=== PATIENT | female | born 1935 | race Caucasian/White ===

== ENCOUNTER → 2017-08-02 | Outpatient (CLI) | payer OTHER | END | disposition home or self-care (01) | LOC: RAD 11:50 | DX: R10.9 Unspecified abdominal pain (principal) ==

== ENCOUNTER 2017-10-20 16:05 | Emergency (ER) | payer OTHER ==
[~2017-10-20] VITALS: Ht 160 cm; Wt 68.0 kg
[2017-10-20] MEDS ORDERED: DIGOXIN125 MCG (16:37)
[2017-10-20] MEDS ORDERED: ADALAT CC60 MG (16:37)
[2017-10-20] MEDS ORDERED: LASIX20 MG (16:37)
[2017-10-20] MEDS ORDERED: RESTORIL30 MG (16:38)
[2017-10-20] MEDS ORDERED: SERTRALINE HCL100 MG (16:38)
[2017-10-20] MEDS ORDERED: SPIRONOLACTONE50 MG (16:38)
[2017-10-20] MEDS ORDERED: OMEPRAZOLE40 MG (16:38)
[2017-10-20] MEDS ORDERED: SIMVASTATIN40 MG (16:39)
[2017-10-20] MEDS ORDERED: VITAMIN D1000 UNIT (16:39)
== END 2017-10-20 22:25 | disposition home or self-care (01) ==
LOC: ER 16:05
DX: S00.03XA Contusion of scalp, initial encounter (principal); S40.011A Contusion of right shoulder, initial encounter; S19.9XXA Unspecified injury of neck, initial encounter; W01.198A Fall on same level from slipping, tripping and stumbling with subsequent striking against other object, initial encounter; Y93.E8 Activity, other personal hygiene; Y92.012 Bathroom of single-family (private) house as the place of occurrence of the external cause; Y99.8 Other external cause status

== ENCOUNTER 2018-05-04 13:50 | Outpatient (CLI) | payer OTHER ==
[~2018-05-04 13:50] MED LIST: ADALAT CC60 MG; DIGOXIN125 MCG; LASIX20 MG; OMEPRAZOLE40 MG; RESTORIL30 MG; SERTRALINE HCL100 MG; SIMVASTATIN40 MG; SPIRONOLACTONE50 MG; VITAMIN D1000 UNIT
== END 2018-05-04 13:55 | disposition home or self-care (01) ==
LOC: RAD 13:50
DX: R10.84 Generalized abdominal pain (principal); N20.0 Calculus of kidney

== ENCOUNTER → 2018-12-28 | Outpatient (CLI) | payer OTHER | END | disposition home or self-care (01) | LOC: RAD 15:15 | DX: M25.551 Pain in right hip (principal) ==

== ENCOUNTER 2024-07-26 16:18 | Inpatient (IN) | payer OTHER ==
[~2024-07-26] VITALS: Ht 152.4 cm; Wt 63.5 kg
--- NOTE | 2024-07-26 16:37 | NUR ---
SE RECIBE PTE ALERTA Y ORIENTADA EN PERSONA EN AMBULANCIA, PERSONAL PARAMEDICO REFIERE TRAER A PTE POR DIFICULTAD RESPIRATORIA. PTE CON CN A 3LTS COLOCADA. SE MIDEN S/V A PTE, PTE SATURANDO 91% SE OBSERVA CON RESPIRACIONES ABDOMINALES. PERSONAL PARAMEDICO REFIEREN GIDEON ADMINISTRADO 125MG DE SOLUMEDROL Y 1RONDA DE TERAPIA DE ATROVENT. PTE SE UIBCA EN UNIDAD DE CRITICO SE CONECTA A MONITOR CARDIACO CON OXIMETRIA CONTINUA.
[2024-07-26] MEDS ORDERED: 0.9 % SODIUM CHLORIDE 1,000 ML IV SCH (17:15)
[2024-07-26] MEDS ORDERED: CEFTRIAXONE SODIUM 1,000 MG VIAL IV ONE (17:15)
[2024-07-26 17:24] LABS: HEMATOCRIT 37.5 % (36.0-45.00); HEMOGLOBIN 12.1 g/dL (12.0-15.00); MEAN CELL VOLUME 88.8 fL (80.00-100.00); MEAN CORPUSCULAR HEMOGLOBIN 28.5 pg (27.00-32.0); MEAN CORPUSCULAR HGB CONC 32.1 g/dl (32.0-36.0); PLATELET COUNT 216 K/uL (150-450); RED BLOOD COUNT 4.23 M/uL (4.00-6.00); RED CELL DISTRIBUTION WIDTH 14.7 % (11.5-14.5)
--- NOTE | 2024-07-26 17:32 | NUR ---
SE EDUCA A PTE SOBRE TX, SE JOVI MUESTRAS DE LABORATORIO UTILIZANDO MEDIDAS ASEPTICAS. SE COLOCA H/L SO DEEDEMA. SE COLOCAN MEDICAMENTOS LOS CUALES TOLERA. SE NOTIFICIA ESTUDIO DE RX PENDIENTE A REALIZAR. SE NOTIFICAN ABGS A PERSONAL DE TERAPIA RESPIRATORIA. PTE SE CONTINUA MONITORIANDO POR CAMBIOS.
[2024-07-26 17:51] LABS: INR 1.17; PARTIAL THROMBOPLASTIN TIME 27.4 SECONDS (22.0-34.0); PROTHROMBIN TIME 12.6 SECONDS (9.0-11.5)
[2024-07-26 17:54] LABS: ABG PH 7.384 (7.35-7.45); ABG pCO2 44.2 mmHg (35-45)
[2024-07-26 17:55] LABS: ABG PO2 56.5 mmHg (80-100); BASE EXCESS 0.4 mmol/l; BICARBONATE 25.8 mmol/l (23-25); SaO2 88.6 %; Tco2 27.1 mmol/l; allen test SATISFACTORY; o2 28 %; puncture site RADIAL RIGHT
[2024-07-26] MEDS ORDERED: FUROsemide 40 MG/4 ML VIAL IV ONE (18:00)
[2024-07-26 18:04] LABS: ALBUMIN 3.2 gm/dL (3.4-5.0); BILIRUBIN TOTAL 0.79 mg/dL (0.3-1.2); CALCIUM 9.7 mg/dL (8.5-10.1); CREATININE SERUM 2.01 mg/dL (0.55-1.02); GFR 23.38; GLOBULINA 4.6 G/DL (2.4-3.5); POTASSIUM 5.24 mEq/L (3.5-5.1); TOTAL PROTEIN 7.8 gm/dL (6.4-8.2)
[2024-07-26] MEDS ORDERED: CLONAZEPAM0.5 MG PO (18:05)
--- NOTE | 2024-07-26 19:10 | NUR ---
1735 SE COLECTAN CULTIVOS DE RADHA RADHA ORDEN MEDICA, BAJO MEDIDAS ASEPTICAS. SE INSERTA SONDA URINARIA BAJO MEDIDAS ESTERILES TAMANO F#[id number], SE OBSERVA EGRESO DE ORINA COLOR AMARILLO LESLY APROXIMADAMENTE 25ML. PERSONAL DE TERAPIA RESPIRATORIA REALIZA ABGS Y COLOCA BIPAP RADHA ORDEN MEDICA. PERSONAL DE RADIOLOGIA REALIZA XARY PORTABLE. SE ORIENTA A FAMILIAR SOBRE TX REFIERE COMPRENDER. FAMILIAR DE PTE COMPLETA DOCUMENTACION DE DIRECTRICES ANTICIPADAS SE ADJUNTA EN RECORD MEDICO DE PTE.
[2024-07-26 19:58] LABS: URINE APPEARANCE Cloudy; URINE BILIRRUBIN Negative (NEGATIVE); URINE BLOOD Small; URINE COLOR Yellow; URINE GLUCOSE Negative (NEGATIVE); URINE KETONE Negative (NEGATIVE); URINE LEUKOCYTE Moderate; URINE NITRATE Negative
[2024-07-26 20:03] LABS: URINE BACTERIA 1156.5 uL (0.0-1933); URINE CAST 4.88 uL (0.0-1.40); URINE EPITHELIAL CELLS 147.3 uL (0.0-38.8); URINE RBC 34.9 uL (0.0-20.8); URINE WBC 122.7 uL (0.0-23.2)
[2024-07-26 20:09] LABS: URINE PROTEIN 100 (NEGATIVE)
[2024-07-26] MEDS ORDERED: IPRATROPIUM BROMIDE 0.5 MG/2.5 ML AMPUL.NEB IH SCH (20:56)
[2024-07-26] MEDS ORDERED: ASPIRIN 325 MG TABLET PO ONE (21:00)
[2024-07-26] MEDS ORDERED: ATORVASTATIN CALCIUM 40 MG TABLET PO SCH (21:01)
[2024-07-26] MEDS ORDERED: ENOXAPARIN SODIUM 80 MG/0.8 ML SYRINGE SUBCUTANEO SCH (21:02)
[2024-07-26] MEDS ORDERED: NITROGLYCERIN IN 5 % DEXTROSE 250 ML IV SCH (21:15)
[2024-07-26] MEDS ORDERED: ACETAMINOPHEN 500 MG GEL..CAP PO PRN (21:15)
[2024-07-26 22:19] VITALS: BP 114/69; O2SAT 99
[2024-07-26 23:38] VITALS: BP 135/73; O2SAT 98
[2024-07-27] VITALS (10 sets, daily range): BP systolic 108–145; BP diastolic 52–78; O2SAT 96–100
[2024-07-27] MEDS ORDERED: FUROsemide 20 MG/2 ML VIAL IV SCH (01:00)
[2024-07-27 08:25] LABS: CHOL HDL RATIO 2.5 (0-5.0); TSH 0.682 uIU/mL (0.358-3.74)
[2024-07-27] MEDS ORDERED: ASPIRIN 81 MG TAB.CHEW PO SCH (09:00)
[2024-07-27] MEDS ORDERED: TICAGRELOR 90 MG TABLET PO SCH (09:00)
[2024-07-27] MEDS ORDERED: DIGOXIN 0.125 MG TABLET PO SCH (09:00)
[2024-07-27] MEDS ORDERED: FAMOTIDINE/PF 20 MG in 0.9 % SODIUM CHLORIDE 8 ML IV PUSH SCH (09:00)
[2024-07-27 11:39] LABS: ABG PH 7.377 (7.35-7.45); ABG PO2 206.2 mmHg (80-100); BASE EXCESS 1.6 mmol/l; BICARBONATE 27.5 mmol/l (23-25); SaO2 99.7 %
[2024-07-27 11:40] LABS: allen test SATISFACTORY; o2 80 %; puncture site RADIAL LEFT
[2024-07-28] VITALS (11 sets, daily range): BP systolic 127–1117; BP diastolic 66–92; O2SAT 98–100
[2024-07-28] MEDS ORDERED: NITROGLYCERIN IN 5 % DEXTROSE 250 ML IV SCH (08:30)
[2024-07-28] MEDS ORDERED: ENOXAPARIN SODIUM 60 MG/0.6 ML SYRINGE SUBCUTANEO SCH (09:00)
[2024-07-28 15:48] LABS: ABG PH 7.417 (7.35-7.45)
[2024-07-28 15:49] LABS: ABG PO2 69.8 mmHg (80-100); ABG pCO2 42.1 mmHg (35-45); BASE EXCESS 1.7 mmol/l; BICARBONATE 26.5 mmol/l (23-25); SaO2 94.1 %; Tco2 27.8 mmol/l
[2024-07-28 15:51] LABS: allen test SATISFACTORY; o2 80 %; puncture site RADIAL RIGHT
[2024-07-28] MEDS ORDERED: HALOPERIDOL LACTATE 5 MG/ML AMPUL IV PRN (23:15)
[2024-07-29] VITALS (8 sets, daily range): BP systolic 138–168; BP diastolic 75–82; O2SAT 98–100
[2024-07-29] MEDS ORDERED: CEFTRIAXONE SODIUM 2,000 MG in 0.9 % SODIUM CHLORIDE 100 ML IV SCH (11:30)
[2024-07-30] VITALS (10 sets, daily range): BP systolic 135–180; BP diastolic 73–84; O2SAT 94–100
[2024-07-30] MEDS ORDERED: CEFTRIAXONE SODIUM 2,000 MG in 0.9 % SODIUM CHLORIDE 100 ML IV SCH (09:00)
[2024-07-30 10:35] LABS: HEMATOCRIT 36.5 % (36.0-45.00); HEMOGLOBIN 11.7 g/dL (12.0-15.00); MEAN CELL VOLUME 88.5 fL (80.00-100.00); MEAN CORPUSCULAR HEMOGLOBIN 28.2 pg (27.00-32.0); MEAN CORPUSCULAR HGB CONC 31.9 g/dl (32.0-36.0); PLATELET COUNT 239 K/uL (150-450); RED BLOOD COUNT 4.13 M/uL (4.00-6.00); RED CELL DISTRIBUTION WIDTH 14.8 % (11.5-14.5)
[2024-07-30 11:00] LABS: ALBUMIN 3.1 gm/dL (3.4-5.0); BILIRUBIN TOTAL 0.46 mg/dL (0.3-1.2); CALCIUM 9.1 mg/dL (8.5-10.1); CREATININE SERUM 2.01 mg/dL (0.55-1.02); GFR 23.38; GLOBULINA 4.3 G/DL (2.4-3.5); POTASSIUM 4.38 mEq/L (3.5-5.1); TOTAL PROTEIN 7.4 gm/dL (6.4-8.2)
[2024-07-30] MEDS ORDERED: hydrALAZINE HCL 20 MG VIAL IV PRN (12:15)
[2024-07-30] MEDS ORDERED: hydrALAZINE HCL 25 MG TABLET PO SCH (13:00)
[2024-07-30 14:33] LABS: ABG PH 7.359 (7.35-7.45); ABG PO2 84.9 mmHg (80-100); SaO2 95.9 %
[2024-07-30 14:34] LABS: BASE EXCESS 0.3 mmol/l; BICARBONATE 26.4 mmol/l (23-25); Tco2 27.9 mmol/l; allen test SATISFACTORY; o2 50 %; puncture site RADIAL LEFT
[2024-07-31] VITALS (9 sets, daily range): BP systolic 150–164; BP diastolic 71–76; O2SAT 90–98
[2024-07-31 08:19] LABS: CALCIUM 8.7 mg/dL (8.5-10.1); CREATININE SERUM 1.45 mg/dL (0.55-1.02); GFR 34.08; POTASSIUM 3.86 mEq/L (3.5-5.1)
[2024-07-31] MEDS ORDERED: CLONAZEPAM 0.5 MG TABLET PO SCH (11:47)
[2024-07-31] MEDS ORDERED: SERTRALINE HCL 100 MG TABLET PO NR (12:00)
[2024-07-31] MEDS ORDERED: TEMAZEPAM 15 MG CAPSULE PO SCH (21:00)
[2024-08-01] VITALS (8 sets, daily range): BP systolic 129–146; BP diastolic 73–80; O2SAT 88–100
[2024-08-01] MEDS ORDERED: SERTRALINE HCL 100 MG TABLET PO SCH (09:00)
[2024-08-01 12:13] LABS: ABG PH 7.437 (7.35-7.45); ABG PO2 61.6 mmHg (80-100); ABG pCO2 40.6 mmHg (35-45); BASE EXCESS 2.4 mmol/l; BICARBONATE 26.8 mmol/l (23-25); SaO2 92.3 %
[2024-08-01 12:16] LABS: allen test SATISFACTORY; o2 35 %; puncture site RADIAL RIGHT
[2024-08-02] VITALS (8 sets, daily range): BP systolic 147–163; BP diastolic 65–90; O2SAT 96–100
[2024-08-03] VITALS (8 sets, daily range): BP systolic 134–158; BP diastolic 64–95; O2SAT 92–100
[2024-08-03 07:41] LABS: HEMATOCRIT 36.8 % (36.0-45.00); HEMOGLOBIN 12.1 g/dL (12.0-15.00); MEAN CELL VOLUME 87.4 fL (80.00-100.00); MEAN CORPUSCULAR HEMOGLOBIN 28.7 pg (27.00-32.0); MEAN CORPUSCULAR HGB CONC 32.9 g/dl (32.0-36.0); PLATELET COUNT 191 K/uL (150-450); RED BLOOD COUNT 4.21 M/uL (4.00-6.00); RED CELL DISTRIBUTION WIDTH 15.5 % (11.5-14.5)
[2024-08-03 08:31] LABS: CALCIUM 8.7 mg/dL (8.5-10.1); CREATININE SERUM 1.22 mg/dL (0.55-1.02); GFR 41.6; POTASSIUM 3.59 mEq/L (3.5-5.1)
[2024-08-03 19:59] LABS: ABG PH 7.345 (7.35-7.45); ABG PO2 175.2 mmHg (80-100); ABG pCO2 43.8 mmHg (35-45); BASE EXCESS -2.4 mmol/l; BICARBONATE 23.4 mmol/l (23-25); SaO2 99.4 %; Tco2 24.7 mmol/l
[2024-08-03 20:00] LABS: allen test SATISFACTORY; o2 100 %; puncture site RADIAL LEFT
[2024-08-03] MEDS ORDERED: FUROsemide 40 MG/4 ML VIAL IV SCH (21:00)
[2024-08-04] VITALS (10 sets, daily range): BP systolic 135–180; BP diastolic 80–92; O2SAT 99–100
[2024-08-05] VITALS (11 sets, daily range): BP systolic 130–171; BP diastolic 68–84; O2SAT 90–100
[2024-08-05] MEDS ORDERED: FUROsemide 40 MG/4 ML VIAL IV SCH (09:00)
[2024-08-05] MEDS ORDERED: HALOPERIDOL LACTATE 5 MG/ML AMPUL IM PRN (18:15)
[2024-08-05] MEDS ORDERED: FUROsemide 20 MG/2 ML VIAL IV SCH (21:00)
[2024-08-06] VITALS (8 sets, daily range): BP systolic 113–182; BP diastolic 67–90; O2SAT 91–98
[2024-08-06 11:41] LABS: HEMATOCRIT 36.2 % (36.0-45.00); HEMOGLOBIN 11.3 g/dL (12.0-15.00); MEAN CELL VOLUME 89.5 fL (80.00-100.00); MEAN CORPUSCULAR HGB CONC 31.2 g/dl (32.0-36.0); PLATELET COUNT 199 K/uL (150-450); RED BLOOD COUNT 4.05 M/uL (4.00-6.00); RED CELL DISTRIBUTION WIDTH 15.9 % (11.5-14.5)
[2024-08-06] MEDS ORDERED: PIPERACILLIN/TAZOBACTAM SODIUM 3.375 GM VIAL IV SCH (12:00)
[2024-08-06 12:02] LABS: ALBUMIN 2.4 gm/dL (3.4-5.0); BILIRUBIN TOTAL 0.32 mg/dL (0.3-1.2); CALCIUM 8.8 mg/dL (8.5-10.1); CREATININE SERUM 1.84 mg/dL (0.55-1.02); GFR 25.89; GLOBULINA 3.9 G/DL (2.4-3.5); TOTAL PROTEIN 6.3 gm/dL (6.4-8.2)
[2024-08-06 12:15] LABS: POTASSIUM 2.95 mEq/L (3.5-5.1)
[2024-08-06 12:27] LABS: ABG PH 7.348 (7.35-7.45); ABG PO2 94.1 mmHg (80-100); ABG pCO2 42.8 mmHg (35-45); BASE EXCESS -2.6 mmol/l; SaO2 96.7 %; Tco2 24.3 mmol/l
[2024-08-06 12:28] LABS: allen test SATISFACTORY; o2 100 %; puncture site RADIAL RIGHT
[2024-08-06] MEDS ORDERED: POTASSIUM CHLORIDE IN WATER 100 ML IV NR (13:45)
[2024-08-06] MEDS ORDERED: DEXTROSE 5 % IN WATER 1,000 ML IV SCH (14:15)
[2024-08-07 02:36] VITALS: BP 108/75; O2SAT 91
[2024-08-07] MEDS ORDERED: MEROPENEM 500 MG/VIAL VIAL IV SCH (05:00)
[2024-08-07 05:12] LABS: HEMATOCRIT 37.6 % (36.0-45.00); HEMOGLOBIN 12.1 g/dL (12.0-15.00); MEAN CELL VOLUME 88.6 fL (80.00-100.00); MEAN CORPUSCULAR HEMOGLOBIN 28.5 pg (27.00-32.0); MEAN CORPUSCULAR HGB CONC 32.2 g/dl (32.0-36.0); PLATELET COUNT 222 K/uL (150-450); RED BLOOD COUNT 4.25 M/uL (4.00-6.00); RED CELL DISTRIBUTION WIDTH 16.1 % (11.5-14.5)
[2024-08-07 05:22] VITALS: O2SAT 79
[2024-08-07 05:35] LABS: ALBUMIN 2.8 gm/dL (3.4-5.0); BILIRUBIN TOTAL 0.55 mg/dL (0.3-1.2); CALCIUM 9.4 mg/dL (8.5-10.1); CREATININE SERUM 2.79 mg/dL (0.55-1.02); GFR 16.01; GLOBULINA 4.1 G/DL (2.4-3.5); POTASSIUM 3.79 mEq/L (3.5-5.1); TOTAL PROTEIN 6.9 gm/dL (6.4-8.2)
[2024-08-07 08:24] VITALS: BP 110/75
[2024-08-07 09:11] VITALS: O2SAT 90
[2024-08-07] MEDS ORDERED: MORPHINE SULFATE 50 MG in 0.9 % SODIUM CHLORIDE 50 ML IV SCH (12:45)
[2024-08-07 13:23] VITALS: O2SAT 88
[2024-08-07 13:24] LABS: ABG PH 7.374 (7.35-7.45); ABG PO2 60.8 mmHg (80-100); ABG pCO2 37.1 mmHg (35-45); BASE EXCESS -3.5 mmol/l; BICARBONATE 21.2 mmol/l (23-25); SaO2 89.9 %; Tco2 22.3 mmol/l
[2024-08-07 13:25] LABS: allen test SATISFACTORY; o2 100 %; puncture site RADIAL RIGHT
[2024-08-07] MEDS ORDERED: MORPHINE SULFATE IV SCH (14:45)
[2024-08-07] MEDS ORDERED: SODIUM CHLORIDE 0.9% IV SCH (14:45)
[2024-08-08] MEDS ORDERED: MORPHINE SULFATE 48 MG,MORPHINE SULFATE 2 MG in 0.9 % SODIUM CHLORIDE 50 ML IV SCH (18:00)
== END 2024-08-07 18:58 | disposition expired ==
LOC: ER 16:18 → ICU-2 21:21 → SEC-K 07-28 12:58 → SURH 07-28 14:42 → MEDJ 08-01 16:44 → SURH 08-01 18:00 → MEDI 08-04 09:11
PROVIDERS: General Practice; Internal Medicine; Student in an Organized Health Care Education/Training Program; ADMIT Internal Medicine; ATTEND Internal Medicine
PROC: 4A12X4Z Monitoring of Cardiac Electrical Activity, External Approach (ICD-10-PCS; principal; 2024-07-26)
PROC: 5A09457 Assistance with Respiratory Ventilation, 24-96 Consecutive Hours, Continuous Positive Airway Pressure (ICD-10-PCS; 2024-07-26)
PROC: BB24ZZZ Computerized Tomography (CT Scan) of Bilateral Lungs (ICD-10-PCS; 2024-07-26)
PROC: B246ZZZ Ultrasonography of Right and Left Heart (ICD-10-PCS; 2024-07-26)
PROC: 3E0F7GC Introduction of Other Therapeutic Substance into Respiratory Tract, Via Natural or Artificial Opening (ICD-10-PCS; 2024-07-27)
PROC: 02HV33Z Insertion of Infusion Device into Superior Vena Cava, Percutaneous Approach (ICD-10-PCS; 2024-07-27)
DX: I50.23 Acute on chronic systolic (congestive) heart failure (principal); J69.0 Pneumonitis due to inhalation of food and vomit; I21.4 Non-ST elevation (NSTEMI) myocardial infarction; J96.01 Acute respiratory failure with hypoxia; I13.0 Hypertensive heart and chronic kidney disease with heart failure and stage 1 through stage 4 chronic kidney disease, or unspecified chronic kidney disease; J91.8 Pleural effusion in other conditions classified elsewhere; N17.9 Acute kidney failure, unspecified; E87.0 Hyperosmolality and hypernatremia; I50.813 Acute on chronic right heart failure; E87.6 Hypokalemia; N18.9 Chronic kidney disease, unspecified; G30.8 Other Alzheimer's disease; Z66 Do not resuscitate; Z74.01 Bed confinement status